=== PATIENT | female | born 1985 | race Caucasian/White ===

== ENCOUNTER 2019-07-03 01:20 | Emergency (ER) | payer OTHER ==
[~2019-07-03] VITALS: Ht 152.4 cm; Wt 63.5 kg
[2019-07-03 01:28] VITALS: Ht 152.4 cm; Wt 63.5 kg
[2019-07-03 02:13] LABS: CALCIUM 8.5 mg/dL (8.5-10.1); CARBON DIOXIDE 27.1 mmol/L (21-32); CHLORIDE SERUM 101 mmol/L (98-107); CREATININE SERUM 0.6 mg/dL (0.6-1.0); GFR1 > 60 mL/min; POTASSIUM SERUM 4.3 mmol/L (3.5-5.1); SODIUM SERUM 135 mmol/L (136-145)
[2019-07-03 02:15] LABS: ALKALINE PHOSPHATASE 146 U/L (46-116); ALT/SGPT 18 U/L (14-59); AST/SGOT 14 U/L (15-37); TOTAL PROTEIN, SERUM 7.2 g/dL (6.4-8.2)
[2019-07-03 02:20] LABS: BASOPHIL % 0.6 % (0-2); PLATELET COUNT 277 x10^3mcL (130-400)
[2019-07-03 02:21] LABS: RED CELL DISTRIBUTION WIDTH 18.7 % (11.5-14.5)
[2019-07-03 02:53] LABS: ALBUMIN 2.9 g/dL (3.4-5.0)
[2019-07-03 02:58] LABS: GLUCOSE SERUM 517 mg/dL (74-106)
[2019-07-03 03:01] LABS: AMPHETAMINE QUAL UR POSITIVE (See below)
[2019-07-03 03:58] VITALS: BP 124/82
== END 2019-07-03 03:58 | disposition home or self-care (01) ==
LOC: ED 01:20
PROVIDERS: Emergency Medicine
DX: N83.8 Other noninflammatory disorders of ovary, fallopian tube and broad ligament (principal); E11.65 Type 2 diabetes mellitus with hyperglycemia; F15.10 Other stimulant abuse, uncomplicated; E05.90 Thyrotoxicosis, unspecified without thyrotoxic crisis or storm
CPT/HCPCS: 82962; J1815; J1885; J7030